=== PATIENT | male | born 1950 | race Caucasian/White ===

== ENCOUNTER 2019-11-11 09:04 | Outpatient (CLI) | payer MEDICARE, SELFPAY ==
--- NOTE | ~2019-11-11 | CT_ITS ---
EXAMINATION: CT abdomen pelvis wo con DATE: 11/11/2019 09:43 INDICATION: Benign prostatic hyperplasia with urinary urgency incontinence TECHNIQUE: Computed tomography (CT) of the abdomen and pelvis was performed without intravenous contr ast. Automated exposure control and iterative reconstruction technique were employed. Exam dose: 971 .60 mGy-cm total exam DLP. COMPARISON: 04/19/2004 CT renal scan FINDINGS: The lung bases are clear. Normal heart size. No pericardial or pleural effusion. Status post cholecystectomy. No bile duct dilatation. 12 mm lesion at the inferomedial margin of the liver with fluid attenuation is likely a small cyst. N o other hepatic space-occupying mass lesion is evident. No pancreatic mass lesion is evident. There is a pinpoint calcification of the uncinate process of th e pancreas which may represent mild chronic pancreatitis. No pancreatic duct dilatation. Normal splenic size. Normal morphology of the adrenal glands. 8 mm probable hyperdense right renal cyst with attenuation of 81 Hounsfield units. The kidneys otherw ise appear unremarkable on this limited noncontrast examination. No urinary tract calculus or hydrour eteronephrosis. The urinary bladder is unremarkable. There is mild prostate gland calcification. Normal caliber of the abdominal aorta. No intraperitoneal or retroperitoneal or pelvic mass lesion or adenopathy or ascites. Normal appendix. No bowel obstruction, bowel wall thickening, pneumatosis or intraperitoneal free air . Very small fat-containing umbilical hernia and small fat-containing right inguinal hernia. There is severe degenerative disc disease at L4-5 with posterior spurring and moderately severe degen erative disc disease at L5-S1 with posterior spurring. Degenerative spurring of the lower thoracic spine. No suspicious osteolytic or osteoblastic lesions are noted. IMPRESSION: Probable hepatic and right renal cyst Probable minimal chronic pancreatitis Reviewed, dictated and finalized at [facility]. Reviewed, dictated and finalized at location A.
== END 2019-11-11 09:05 | disposition home or self-care (01) ==
PROVIDERS: PCP Family Medicine; Visit Provider Urology
DX: N40.1 Benign prostatic hyperplasia with lower urinary tract symptoms (principal)
CPT/HCPCS: 74176

== ENCOUNTER 2020-05-16 08:46 | Outpatient (CLI) | payer MEDICARE, SELFPAY ==
--- NOTE | ~2020-05-16 | MR_ITS ---
EXAMINATION: MR IAC wo/w con DATE: 05/16/2020 10:38 INDICATION: Asymmetrical hearing loss. TECHNIQUE: Magnetic resonance imaging (MRI) of the brain, brainstem, and internal auditory canals was performed without and with 20 mL MultiHance intravenous contrast. Sequences included sagittal and ax ial T1-weighted FSE, axial diffusion-weighted FS EPI, axial T2*-weighted GRE, axial T2-weighted FLAIR Propeller, axial T2-weighted Propeller, small bmklc-vf-wyvi coronal FIESTA, small wkjyh-ir-iwzc eriberto nal T1-weighted FSE, and small pmlom-ju-lwej axial T1-weighted SPGR. Postcontrast sequences included axial T1-weighted FSE, small tbvrg-ci-lgor coronal T1-weighted FSE, and small mivoj-oj-jxfa axial T1- weighted SPGR. Apparent diffusion coefficient (ADC) maps were created. COMPARISON: None. FINDINGS: There are scattered areas of nonspecific increased T2-weighted signal intensity in the cere bral white matter, which is within normal limits for the patient's age. There is no intracranial hemo rrhage, acute infarction, or abnormal intracranial mass lesion. The ventricles are normal in size. Th e internal auditory canals and inner and middle ears are normal. The mastoid air cells are normal. Th e paranasal sinuses are clear. The orbits are normal. IMPRESSION: 1. Normal aging brain. Reviewed, dictated and finalized at location A. IMPRESSION: 1. Normal aging brain.
[2020-05-16 09:55] LABS: Estimated Glomerular Filt Rate > 60
== END 2020-05-16 08:47 | disposition home or self-care (01) ==
PROVIDERS: PCP Family Medicine; Visit Provider Otolaryngology
DX: H91.8X9 Other specified hearing loss, unspecified ear (principal)
CPT/HCPCS: 70553; A9577

== ENCOUNTER 2021-06-01 00:46 | Day surgery (SDC) | payer MEDICARE, SELFPAY ==
[2021-05-22 14:19] VITALS: BMI 31.8
--- NOTE | 2021-06-01 08:30 | WPDANESEPPF ---
Anes - Initial Pre Proc Eval Procedure: Operation Date: 06/01/21 10:45 Proposed Procedures p Screening Colonoscopy - Westley Austin MD Date/Time: 06/01/21 08:30 Surgeon: Westley Austin MD Pre Op Diagnosis: neoplasm screening Patient Data Age: 71 Gender: M Height: 1.73 m Weight: 95 kg Allergies Allergy/AdvReac Type Severity Reaction Status Date / Time Sulfa (Sulfonamide Allergy Unknown Uti Verified 06/01/21 09:42 Antibiotics) Tetracyclines Allergy Unknown yeast Verified 06/01/21 09:42 infection topiramate Allergy Unknown dopamx Verified 06/01/21 09:42 Home Medications Medication Instructions Recorded Confirmed Type finasteride 5 mg tablet 5 mg PO DAILY #90 tablet 06/30/20 05/22/21 Rx atorvastatin 20 mg tablet 20 mg PO DAILY #90 tablet 08/14/20 05/22/21 Rx venlafaxine 75 mg tablet See Rx Instructions .ROUTE 08/25/20 05/22/21 Rx .COMPLEX #90 tablet atenolol 50 mg tablet 50 mg PO DAILY #90 tablet 10/04/20 05/22/21 Rx pioglitazone 30 mg tablet See Rx Instructions .ROUTE 02/19/21 05/22/21 Rx .COMPLEX #90 tablet lisinopril 5 mg tablet 5 mg PO DAILY #90 tablet 03/21/21 05/22/21 Rx metformin 500 mg tablet 500 mg PO BID #180 tablet 03/21/21 05/22/21 Rx tamsulosin 0.4 mg capsule See Rx Instructions .ROUTE 03/21/21 05/22/21 Rx .COMPLEX #90 cap phentermine 37.5 mg capsule 37.5 mg PO DAILY #90 cap 04/23/21 05/22/21 Rx dulaglutide 0.75 mg/0.5 mL 0.75 mg SUB-Q WEEKLY #2 ml 04/26/21 05/22/21 Rx subcutaneous pen injector Patient hx anesthesia problems: none Family hx anesthesia problems: none Results Review: All pre-operative results and documents have been reviewed as part of the pre-operative evaluation. [facility] Past Medical History Medical History (Updated 06/01/21 @ 08:31 by Doug Hurd MD) Depression Enlarged prostate without lower urinary tract symptoms (luts) Esophageal reflux Essential (primary) hypertension Hemoglobin A1c less than 7.0% december 2019 A1c = 6.8 Mixed hyperlipidemia Obstructive sleep apnea Trimalleolar fracture of left ankle grade 1 open medially Type 2 diabetes mellitus without complications Surgical History Surgical History H/O thyroidectomy History of cholecystectomy Family History Family History Mother Family history of cardiovascular disease Father Family history of malignant neoplasm of brain Other Family history of mental disorder Social History Social History Smoking packs per day: 1 Smoking cigarettes per day: 20.0 Years smoked: 15 Smoking pack-years: 15.00 Tobacco type: cigarettes Smoking end date: 03/03/86 Additional smoking assessment comments: stoped smoking 40 years ago Alcohol intake: never Alcohol use details: occasional Substance use: never Substance use type: does not use Living arrangements: with family Additional occupation/education comments: retired from [employer] Gender identity (if verbalized by the patient): Male Spiritual care concerns: No Anes - Eval Final PreProcedure Day of Procedure 06/01/21 08:30 Patient weight: obese Heart: regular rate and rhythm Lungs: clear to auscultation and normal air movement Airway: Mallampati scale class II Neurological: alert and oriented Last oral intake: >/= 8 hours ASA classification: III Emergent: no Anesthetic plan: proceed Anesthesia type and monitoring: general GIVS Results Review: All pre-operative results and documents have been reviewed as part of the pre-operative evaluation. Informed Consent: The patient's anesthetic plan and its attendant risks and benefits were discussed with the patient/family/POA. Questions were solicited and answers provided to the satisfaction of the patient/family/POA.
[2021-06-01 09:43] VITALS: BP 141/76; PULSE 82; RESP 20; TEMP 36.2; O2SAT 97
[2021-06-01 09:57] LABS: Glucose Point of Care 177 mg/dl (65-105)
--- NOTE | 2021-06-01 09:57 | WPDGICN ---
Assessment and Plan Assessment and plan (1) Encounter for screening colonoscopy: Code(s): Z12.11 - Encounter for screening for malignant neoplasm of colon Status: Acute Assessment and Plan: Patient presents today for screening colonoscopy. He appears to be at average risk for colon polyps. Further recommendations will be given after endoscopy. GI Consult Note Consult date/time: 06/01/21 09:57 HPI: Chu Hensley is a 71 year old male Presents for screening colonoscopy. Patient's current weight appetite and bowel movements are normal. He denies abdominal pain. He has had no bleeding. Family history is noncontributory. Last exam was 12 or 13 years ago was unremarkable. Review of Systems Review of Systems: All systems reviewed & are unremarkable except as noted in HPI and below PMFSH Past Medical History Medical History (Updated 06/01/21 @ 09:58 by Westley Austin MD) Depression Enlarged prostate without lower urinary tract symptoms (luts) Esophageal reflux Essential (primary) hypertension Hemoglobin A1c less than 7.0% december 2019 A1c = 6.8 Mixed hyperlipidemia Obstructive sleep apnea Trimalleolar fracture of left ankle grade 1 open medially Type 2 diabetes mellitus without complications Surgical History Surgical History H/O thyroidectomy History of cholecystectomy Family History Family History Mother Family history of cardiovascular disease Father Family history of malignant neoplasm of brain Other Family history of mental disorder Social History Social History Smoking packs per day: 1 Smoking cigarettes per day: 20.0 Years smoked: 15 Smoking pack-years: 15.00 Tobacco type: cigarettes Smoking end date: 03/03/86 Additional smoking assessment comments: stoped smoking 40 years ago Alcohol intake: never Alcohol use details: occasional Substance use: never Substance use type: does not use Living arrangements: with family Additional occupation/education comments: retired from [employer] Gender identity (if verbalized by the patient): Male Spiritual care concerns: No Meds Home Medications and Allergies Home Medications Medication Instructions Recorded Confirmed Type finasteride 5 mg tablet 5 mg PO DAILY #90 tablet 06/30/20 05/22/21 Rx atorvastatin 20 mg tablet 20 mg PO DAILY #90 tablet 08/14/20 05/22/21 Rx venlafaxine 75 mg tablet See Rx Instructions .ROUTE 08/25/20 05/22/21 Rx .COMPLEX #90 tablet atenolol 50 mg tablet 50 mg PO DAILY #90 tablet 10/04/20 05/22/21 Rx pioglitazone 30 mg tablet See Rx Instructions .ROUTE 02/19/21 05/22/21 Rx .COMPLEX #90 tablet lisinopril 5 mg tablet 5 mg PO DAILY #90 tablet 03/21/21 05/22/21 Rx metformin 500 mg tablet 500 mg PO BID #180 tablet 03/21/21 05/22/21 Rx tamsulosin 0.4 mg capsule See Rx Instructions .ROUTE 03/21/21 05/22/21 Rx .COMPLEX #90 cap phentermine 37.5 mg capsule 37.5 mg PO DAILY #90 cap 04/23/21 05/22/21 Rx dulaglutide 0.75 mg/0.5 mL 0.75 mg SUB-Q WEEKLY #2 ml 04/26/21 05/22/21 Rx subcutaneous pen injector Allergies Allergy/AdvReac Type Severity Reaction Status Date / Time Sulfa (Sulfonamide Allergy Unknown Uti Verified 06/01/21 09:42 Antibiotics) Tetracyclines Allergy Unknown yeast Verified 06/01/21 09:42 infection topiramate Allergy Unknown dopamx Verified 06/01/21 09:42 Vital Signs Vital Signs - 24 hr 06/01/21 09:43 Temperature 97.1 F L Pulse Rate 82 Respiratory Rate 20 Blood Pressure 141/76 H Pulse Oximetry 97 Exam Narrative: Physical exam reveals patient to be alert. Vital signs stable. HEENT exam is unremarkable. Patient is anicteric. Lungs are clear to auscultation and percussion. Heart is without murmur or extra sounds. Abdominal exam bowel sound
[2021-06-01] MEDS: LACTATED RINGERS 1,000 ML 150 ML IV CONT (09:58)
[2021-06-01 10:27] VITALS: BP 133/75; PULSE 84; RESP 18; O2SAT 96
[2021-06-01 10:37] VITALS: BP 142/78; PULSE 78; RESP 20; O2SAT 98
[2021-06-01 10:47] VITALS: BP 132/76; PULSE 78; RESP 22; O2SAT 99
== END 2021-06-01 11:04 | disposition home or self-care (01) ==
PROVIDERS: PCP Family Medicine; Visit Provider Internal Medicine Gastroenterology
PROC: 0DJD8ZZ Inspection of Lower Intestinal Tract, Via Natural or Artificial Opening Endoscopic (ICD-10-PCS; CPT 45378; principal; 2021-06-01 10:45)
DX: Z12.11 Encounter for screening for malignant neoplasm of colon (principal); D12.8 Benign neoplasm of rectum; K62.1 Rectal polyp; K64.8 Other hemorrhoids; E11.9 Type 2 diabetes mellitus without complications; I10 Essential (primary) hypertension; E78.2 Mixed hyperlipidemia; G47.33 Obstructive sleep apnea (adult) (pediatric); N40.1 Benign prostatic hyperplasia with lower urinary tract symptoms; F32.9 Major depressive disorder, single episode, unspecified; Z87.891 Personal history of nicotine dependence; Z79.84 Long term (current) use of oral hypoglycemic drugs; Z79.899 Other long term (current) drug therapy; E66.9 Obesity, unspecified; Z68.33 Body mass index [BMI] 33.0-33.9, adult
CPT/HCPCS: 45380; 82948; 88305; J2001; J2704; J7120

== ENCOUNTER 2021-08-17 16:23 | Emergency (ER) | payer MEDICARE, SELFPAY ==
--- NOTE | ~2021-08-17 | CT_ITS ---
EXAMINATION: CT abdomen pelvis wo con DATE: 08/17/2021 17:29 INDICATION: Right flank pain. Hematuria. TECHNIQUE: Computed tomography (CT) of the abdomen and pelvis was performed without intravenous contr ast. Automated exposure control and iterative reconstruction technique were employed. The dose-length product was 466.80 mGy-cm. COMPARISON: CT abdomen and pelvis 11/11/2019 FINDINGS: The visualized portions of the lung bases demonstrate minimal atelectasis. No pleural effus ion. The heart size is normal. No pericardial effusion. The liver and spleen are normal. There are ch anges of cholecystectomy. The pancreas, adrenal glands, and left kidney are normal. There is a 10 mm hemorrhagic cyst in right kidney. There is no urolithiasis. There are no dilated loops of bowel. The appendix is normal. There are no pathologically enlarged lymph nodes. There is no free intraperitonea l fluid. There is severe lumbar spondylosis. IMPRESSION: 1. No urolithiasis. Reviewed, dictated and finalized at location B. IMPRESSION: 1. No urolithiasis.
[2021-08-17 16:27] VITALS: BP 121/88; PULSE 69; RESP 18; TEMP 36.4; O2SAT 100
[2021-08-17 16:37] LABS: Basophils Absolute Auto 0.1 K/mm3 (0.0-0.1); Basophils Percent Auto 0.8 % (0.2-1.2); Eosinophils Absolute Auto 0.7 K/mm3 (0-0.3); Eosinophils Percent Auto 6.8 % (0-4.4); Hematocrit 38.8 % (42.0-52.0); Hemoglobin 12.6 g/dL (14.0-18.0); Immature Granulocyte Absolute 0.29 K/mm3 (0.00-0.031); Immature Granulocyte Percent A 2.9 % (0-0.5); Lymphocytes Absolute Auto 2.53 K/mm3 (0.9-3.2); Lymphocytes Percent Auto 25.6 % (18.3-44.2); Mean Corpuscular HGB Conc 32.5 g/dl (32-36); Mean Corpuscular Volume 89.2 fl (80-100); Mean Platelet Volume 8.8 fl (7.4-10.4); Monocytes Absolute Auto 0.8 K/mm3 (0.1-0.6); Monocytes Percent Auto 8.3 % (2.6-8.5); Neutrophils Absolute Auto 5.5 K/mm3 (1.3-6.7); Neutrophils Percent Auto 55.6 % (45.5-73.1); Platelet Count Result 373 k/mm3 (150-375); Red Blood Count 4.35 M/mm3 (4.6-6.20); Red Cell Distribution Width 13.8 % (11.5-14.5); White Blood Count 9.9 K/mm3 (4.5-10.0)
[2021-08-17 16:47] LABS: Alanine Aminotransferase 34 U/L (6-50); Albumin Level 3.8 g/dL (3.5-5.1); Alkaline Phosphatase 119 U/L (38-126); Anion Gap 6 mmol/L (8-16); Aspartate Amino Transferase 37 U/L (17-59); Bilirubin,Total 0.4 mg/dL (0.2-1.3); Blood Urea Nitrogen 27 mg/dL (9-20); Calcium 8.9 mg/dL (8.4-10.2); Carbon Dioxide 27 mmol/L (22-30); Chloride 105 mmol/L (98-107); Estimated CRCL calculation 77 ml/min; Estimated Glomerular Filt Rate > 60; Glucose 165 mg/dL (65-110); Potassium 4.5 mmol/L (3.4-5.0); Sodium 138 mmol/L (137-145)
[2021-08-17 16:53] LABS: Add Urine Microscopic? YES; Appearance Urine Slightly Cloudy (Clear); Bilirubin Urine Negative (Negative); Blood Urine 3+ (Negative); Color Urine Yellow (Yellow); Glucose Urine UA Negative (Negative); Ketones Urine Negative (Negative); Leukocyte Esterase Ur Negative LEU/UL (Negative); Nitrate Urine Negative (Negative); Protein Urine Negative (Negative); Specific Grav Ur 1.025 (1.001-1.035); Urobilinogen Urine 0.2 mg/dL (<2.0)
[2021-08-17 16:59] LABS: Bacteria Urine Trace /hpf; Mucus Urine Rare /lpf; RBC Urine >75 /hpf (0-2); Squamous Epithelial Cell Urine Rare /hpf (Few)
--- NOTE | 2021-08-17 17:29 | ED.GENADULT ---
HPI - General Adult General Chief complaint: Urogenital-Male <Vandana Dotson PA-C - Last Filed: 08/18/21 02:42> Stated complaint: Blood In Urine <LAZARA Kumari Last Filed: 08/18/21 02:42> Time Seen by Provider: 08/17/21 16:56 <LAZARA Kumari Last Filed: 08/18/21 02:42> Source: patient <LAZARA Kumari Last Filed: 08/18/21 02:42> Mode of arrival: ambulatory <LAZARA Kumari Last Filed: 08/18/21 02:42> Limitations: no limitations <LAZARA Kumari Last Filed: 08/18/21 02:42> History of Present Illness HPI narrative: Patient is a 71-year-old male who presents the ED with report of hematuria and flank pain. Patient reports he was working out in his garage on several weeks ago and developed pain in his right sided lower back/right lower abdomen. Does radiate into groin, but no significant testicular pain or swelling. He assumed he just strained a muscle. Around 2 weeks ago, he began having dysuria and urinary frequency. He notified his PCP about this and was started on Macrobid. He finished the antibiotic course and states the dysuria initially resolved. This morning, he had an appointment to see his PCP at which point he had a urine sample obtained which showed microscopic hematuria. Patient denied noticing any blood in his urine at that time, however did notice gross hematuria at home this evening, which prompted him to come to the ED. He does note he has still been having the flank pain as well. He has been taking naproxen at home for this. Patient has a history of BPH, but denies ever having symptoms like this before. He does take Flomax and finasteride. Patient denies any fever, chills, nausea, vomiting, rectal bleeding. <LAZARA Kumari Last Filed: 08/18/21 02:42> Related Data Allergies/adverse reactions: Allergies Allergy/AdvReac Type Severity Reaction Status Date / Time Sulfa (Sulfonamide Allergy Unknown Uti Verified 08/17/21 10:02 Antibiotics) Tetracyclines Allergy Unknown yeast Verified 08/17/21 10:02 infection topiramate Allergy Unknown dopamx Verified 08/17/21 10:02 <Vandana Dotson PA-C - Last Filed: 08/18/21 02:42> Review of Systems Review of Systems: CONSTITUTIONAL: Denies fever, chills. CARDIOVASCULAR: Denies chest pain. RESPIRATORY: Denies dyspnea. GASTROINTESTINAL: Reports R lower ABD pain. Denies nausea, vomiting, rectal bleeding, or diarrhea. GENITOURINARY: Reports dysuria, hematuria. MUSCULOSKELETAL: Reports R lower back pain. Denies joint pain or myalgia. NEUROLOGIC: Denies headache, numbness, or weakness. <Vandana Dotson PA-C - Last Filed: 08/18/21 02:42> All systems reviewed & are unremarkable except as noted in HPI and below <Vandana Dotson PA-C - Last Filed: 08/18/21 02:42> [facility] Past Medical History Medical History: Medical History Depression Enlarged prostate without lower urinary tract symptoms (luts) Esophageal reflux Essential (primary) hypertension Hemoglobin A1c less than 7.0% december 2019 A1c = 6.8 Mixed hyperlipidemia Obstructive sleep apnea Trimalleolar fracture of left ankle grade 1 open medially Type 2 diabetes mellitus without complications <Vandana Dotson PA-C - Last Filed: 08/18/21 02:42> Surgical History Surgical History: Surgical History H/O thyroidectomy History of cholecystectomy <Vandana Dotson PA-C - Last Filed: 08/18/21 02:42> Family History Family History: Family History Mother Family history of cardiovascular disease Father Family history of malignant neoplasm of brain Other Family history of mental disorder <Vandana Dotson PA-C - Last Filed: 08/18/21 02:42> Social History Social History: Social History (Updated 08/17/21 @ 17:32 b
[2021-08-17] MEDS: SODIUM CHLORIDE 0.9% IV 1,000 ML 999 ML IV CONT (17:43)
== END 2021-08-17 18:48 | disposition home or self-care (01) ==
PROVIDERS: Emergency Medicine; Emergency Provider Emergency Medicine; PCP Family Medicine
DX: R31.9 Hematuria, unspecified (principal); N28.1 Cyst of kidney, acquired; N39.0 Urinary tract infection, site not specified; I10 Essential (primary) hypertension; E78.2 Mixed hyperlipidemia; E11.9 Type 2 diabetes mellitus without complications; N40.0 Benign prostatic hyperplasia without lower urinary tract symptoms; G47.33 Obstructive sleep apnea (adult) (pediatric); K21.9 Gastro-esophageal reflux disease without esophagitis; E89.0 Postprocedural hypothyroidism; Z87.891 Personal history of nicotine dependence; Z79.84 Long term (current) use of oral hypoglycemic drugs; Z79.899 Other long term (current) drug therapy
CPT/HCPCS: 36415; 74176; 80053; 81001; 85025; 87086; 87088; 96361; 96365; 99284; J0131; J7030

== ENCOUNTER 2021-09-04 12:10 | Outpatient (CLI) | payer MEDICARE, SELFPAY ==
--- NOTE | ~2021-09-04 | XR_ITS ---
XR_[id number]_CR DATE: 09/04/2021 12:28 INDICATION: Left arm numbness TECHNIQUE: AP, open-mouth, lateral views COMPARISON: None FINDINGS: There is straightening of the cervical spine. C1 and C2 are normally aligned and the odontoid process is intact. No fracture or dislocation or lock ed facet or prevertebral soft tissue swelling. Severe degenerative disc disease and mild retrolisthesis at C5-6. Severe degenerative disc disease at C6-7. IMPRESSION: Severe degenerative disc disease at C5-6 and C6-7 with mild retrolisthesis at C5-6 Reviewed, dictated and finalized at [facility]. Reviewed, dictated and finalized at location A. IMPRESSION: Severe degenerative disc disease at C5-6 and C6-7 with mild retroli sthesis at C5-6
== END 2021-09-04 12:11 | disposition home or self-care (01) ==
PROVIDERS: PCP Family Medicine; Visit Provider Physician Assistant
DX: M54.12 Radiculopathy, cervical region (principal); M50.323 Other cervical disc degeneration at C6-C7 level
CPT/HCPCS: 72040

== ENCOUNTER 2021-10-24 09:15 | Outpatient (CLI) | payer MEDICARE, SELFPAY ==
--- NOTE | 2021-10-24 11:00 | NEURO_ITS ---
Impression: # Complains of numbness and pain in upper extremities. # Evolving left Carpal Tunnel Syndrome, not enough to make the diagnosis,at this stage.. # No ulnar neuropathy. # Normal needle/EMG exam. # Clinical correlation recommended. Nerve Conduction Studies Anti Sensory Summary Table Stim Site NR Peak (ms) P-T Amp (?V) Site1 Site2 Delta-P (ms) Dist (cm) [place] (m/s) Left Median Anti Sensory (2-3nd Digit) Wrist 3.2 54.6 Wrist 2-3nd Digit 3.2 14.0 44 Wrist 3.1 22.6 Wrist 2-3nd Digit 3.2 14.0 44 Right Median Anti Sensory (2-3nd Digit) Wrist 3.3 35.0 Wrist 2-3nd Digit 3.3 14.0 42 Wrist 3.2 18.6 Wrist 2-3nd Digit 3.3 14.0 42 Left Radial Anti Sensory (Base 1st Digit) Wrist 2.4 30.8 Wrist Base 1st Digit 2.4 0.0 Right Radial Anti Sensory (Base 1st Digit) Wrist 2.8 12.9 Wrist Base 1st Digit 2.8 0.0 Left Ulnar Anti Sensory (5th Digit) Wrist 2.9 37.8 Wrist 5th Digit 2.9 14.0 48 Right Ulnar Anti Sensory (5th Digit) Wrist 2.6 21.3 Wrist 5th Digit 2.6 14.0 54 Motor Summary Table Stim Site NR Onset (ms) O-P Amp (mV) Site1 Site2 Delta-0 (ms) Dist (cm) [place] (m/s) Left Median Motor (Abd Poll Brev) Wrist 3.8 1.3 Elbow Wrist 5.3 27.0 51 Elbow 9.1 1.3 Right Median Motor (Abd Poll Brev) Wrist 3.3 2.4 Elbow Wrist 6.5 30.0 46 Elbow 9.8 3.8 Left Ulnar Motor (Abd Dig Minimi) Wrist 2.7 6.8 A Elbow Wrist 5.6 28.0 50 A Elbow 8.3 6.2 B Elbow Wrist 4.5 22.0 49 B Elbow 7.2 4.1 Right Ulnar Motor (Abd Dig Minimi) Wrist 2.7 5.8 A Elbow Wrist 6.1 31.0 51 A Elbow 8.8 4.5 F Wave Studies NR F-Lat (ms) L-R F-Lat (ms) Left Median (Mrkrs) (Abd Poll Brev) 29.77 0.82 Right Median (Mrkrs) (Abd Poll Brev) 30.59 0.82 Left Ulnar (Mrkrs) (Abd Dig Min) 30.75 0.09 Right Ulnar (Mrkrs) (Abd Dig Min) 30.84 0.09 EMG Side Muscle Nerve Root Ins Act Fibs Amp Dur Recrt Comment Right 1stDorInt Ulnar C8-T1 Nml Nml Nml Nml Nml Right Ext Indicis Radial (Post Int) C7-8 Nml Nml Nml Nml Nml Right Ext Digitorum Radial (Post Int) C7-8 Nml Nml Nml Nml Nml Right BrachioRad Radial C5-6 Nml Nml Nml Nml Nml Right PronatorTeres Median C6-7 Nml Nml Nml Nml Nml Right Abd Poll Brev Median C8-T1 Nml Nml Nml Nml Nml Left 1stDorInt Ulnar C8-T1 Nml Nml Nml Nml Nml Left Ext Indicis Radial (Post Int) C7-8 Nml Nml Nml Nml Nml Left Ext Digitorum Radial (Post Int) C7-8 Nml Nml Nml Nml Nml Left BrachioRad Radial C5-6 Nml Nml Nml Nml Nml Left PronatorTeres Median C6-7 Nml Nml Nml Nml Nml Left Abd Poll Brev Median C8-T1 Nml Nml Nml Nml Nml MTDD
== END 2021-10-24 09:16 | disposition home or self-care (01) ==
PROVIDERS: PCP Emergency Medicine; Visit Provider Physician Assistant
DX: G56.02 Carpal tunnel syndrome, left upper limb (principal)
CPT/HCPCS: 95886; 95911

== ENCOUNTER 2021-12-26 14:09 | Outpatient (CLI) | payer MEDICARE, SELFPAY ==
--- NOTE | ~2021-12-26 | CT_ITS ---
EXAMINATION: CT abdomen pelvis wo/w con DATE: 12/26/2021 15:40 INDICATION: Left-sided abdominal pain. Urinary tract infection. Diarrhea. TECHNIQUE: Computed tomography (CT) of the abdomen and pelvis was performed without and subsequently with 130 CC Omnipaque 350 intravenous contrast. Automated exposure control and iterative reconstructi on technique were employed. Exam dose: 2546.09 mGy-cm total exam DLP. COMPARISON: 08/17/2021 CT abdomen pelvis FINDINGS: The lung bases are clear of infiltrate or consolidation. Heart size is normal. No pericardi al or pleural effusion. 1.6 cm right hepatic cyst. A couple of very small additional hepatic cysts are noted. Normal splenic size. No pancreatic mass lesion or calcification or ductal dilatation. Status post cholecystectomy. No bile duct dilatation. Normal morphology of the adrenal glands. Several 5 mm smaller renal cysts. No suspicious renal space occupying mass lesion is noted on either side. No urinary tract calculus or hydroureteronephrosis. There is prostate enlargement and calcification with mild generalized thickening of the urinary bladd er wall. There is prostatic impression upon the base of the urinary bladder but no apparent urinary b ladder mass lesion is noted. Normal caliber of the abdominal aorta. No intraperitoneal or retroperitoneal or pelvic mass lesion or adenopathy or ascites. Normal appendix. No bowel obstruction, bowel wall thickening, pneumatosis or intraperitoneal free air . There is prominent degenerative disease at L4-5 and L5-S1. Bilateral hip osteoarthritis. No suspiciou s osteolytic or osteoblastic lesions are noted. IMPRESSION: Hepatic cysts Status post cholecystectomy Renal small cysts Prostate enlargement Reviewed, dictated and finalized at [facility]. Reviewed, dictated and finalized at location A.
[2021-12-26 15:20] LABS: Estimated Glomerular Filt Rate > 60
== END 2021-12-26 14:10 | disposition home or self-care (01) ==
PROVIDERS: PCP Emergency Medicine; Visit Provider Urology
DX: N39.0 Urinary tract infection, site not specified (principal); K76.89 Other specified diseases of liver; Z90.49 Acquired absence of other specified parts of digestive tract; N28.1 Cyst of kidney, acquired; N40.0 Benign prostatic hyperplasia without lower urinary tract symptoms
CPT/HCPCS: 74178; Q9967

== ENCOUNTER → 2022-04-15 12:09 | Outpatient (CLI) | payer MEDICARE, SELFPAY ==
--- NOTE | ~2022-04-15 | XR_ITS ---
Right ankle Technique: AP, oblique, and lateral views were obtained. Clinical History: Pain Findings: No acute fracture or dislocation is seen. Osseous alignment is anatomic. Ankle mortise and other visualized joint spaces are preserved. There is enthesopathic change at the Achilles tendon ins ertion. Small plantar calcaneal spur noted. Impression: No fracture or dislocation. Enthesopathic change at the Achilles tendon insertion. Small plantar calcaneal spur. Reviewed, dictated and finalized at location . KILLER Impression: No fracture or dislocation. Enthesopathic change at the Achilles tendon insertion. Small plantar calcaneal spur.
--- NOTE | ~2022-04-15 | XR_ITS ---
Right foot Technique: AP, oblique, and lateral views were obtained. Clinical History: Pain Findings: No acute fracture or dislocation is seen. Osseous alignment is anatomic. Joint spaces are p reserved without erosive or degenerative change. Enthesopathic change present at the Achilles tendon insertion. Impression: No fracture or dislocation. Enthesopathic change at the Achilles tendon insertion. Reviewed, dictated and finalized at location . OND PICKER Impression: No fracture or dislocation. Enthesopathic change at the Achilles tendon insertion.
== END ==
PROVIDERS: PCP Emergency Medicine; Visit Provider Emergency Medicine
DX: M79.671 Pain in right foot (principal); M25.571 Pain in right ankle and joints of right foot; M77.31 Calcaneal spur, right foot
CPT/HCPCS: 73610; 73630

== ENCOUNTER 2022-06-11 14:30 | Outpatient (RCR) | payer MEDICARE, SELFPAY ==
--- NOTE | 2022-05-14 15:30 | PTOPEVAL1 ---
Assessment and note entered by Gabriel Diggs, PT, DPT Evaluation Information Assessment Status Evaluation Diagnosis R foot pain Onset 2 months Subjective Information Pt states he has been having lateral ankle pain for the last 2 month. He is currently wearing a brace and states the achy pain increases with prolonged time spent on his feet. He states he gets a cramp on the outside of his calf that is worst at night. He does bhavik chi 3x/wk at the [facility]. Reported Pain Level Pain Score 4: Self Report Assessment PT Clinical Summary Chu presents to therapy today for his initial evaluation with a diagnosis of R foot pain. Today he demonstrates decreased active and passive ankle ROM benson, in all directions as well as decreased strength benson, in all direction. He demonstrates minor gait deviations on the R during ambulation and has better single leg balance on the L. Skilled physical therapy services are indicated to improve strength and stability, active and passive ROM, and to decreased ankle pain with daily tasks. Plan of Care Interventions Gait Training,Hot Pack/Cold Pack,Manual Therapy, Neuro Re-education,Patient/Caregiver Educati, Therapeutic Activities,Self-Care/Home Management PT Services Indicated Yes Treatment Frequency and 1x/wk for 4 wks Duration These treatments will address the objective and functional deficits as defined above. The patient will be advanced safely and appropriately in order for the patient to progress towards his/her prior level of function. Additional exercises will be introduced and as well as a comprehensive home exercise program upon discharge, if needed, ?to ensure carryover of functional gains achieved in the clinic. This treatment plan has been reviewed and agreement upon by the patient.
--- NOTE | 2022-06-04 12:36 | PCPTNOTE ---
Patient reschedule appointment this date due to family emergency.
--- NOTE | 2022-06-11 15:06 | PTOPDC ---
Assessment and note entered by Gabriel Diggs, PT, DPT Evaluation Information Assessment Status Discharge Diagnosis R foot pain Onset 2 months Subjective Information Pt states his ankle is feeling good, and a lot better. He state he currently has a little bit of soreness on the top and lateral side of his ankle but has been walking out in the yard this morning. He states he ordered a new pair of orthotics. He reports good compliance with his HEP. Pt reports 80% improvement in overall symptoms. He does not have any pain first thing in the morning. Reported Pain Level Pain Score 3: Self Report Assessment PT Clinical Summary Chu presents to therapy today for his progress report following 4 visits of skilled therapy to treat his R ankle pain. Today he demonstrates improved ankle dorsiflexion ROM benson, and improved R ankle strength in all directions to where it is now 80% of his uninvolved side. He has met or progressed well towards all of his therapy goals and will be discharged at this time. Plan of Care PT Services Indicated No
== END 2022-06-11 15:35 | disposition home or self-care (01) ==
LOC: ANHGOSHPT 14:30
PROVIDERS: PCP Emergency Medicine; Visit Provider Emergency Medicine
DX: M79.671 Pain in right foot (principal); M72.2 Plantar fascial fibromatosis; M76.61 Achilles tendinitis, right leg
CPT/HCPCS: 97110; 97112; 97116; 97140; 97161